=== PATIENT | female | born 1940 | race Caucasian/White ===

== ENCOUNTER 2016-07-12 12:19 | Inpatient (IN) | payer MEDICARE, OTHER ==
--- NOTE | 2016-07-12 12:56 | ER Document Report ---
ED Fall - General Mode of Arrival: Medic Information source: Patient TRAVEL OUTSIDE OF THE [place] IN LAST 30 DAYS: No - HPI Occurred: Other - x3 days Where: Home <MYRAYESSICA - Last Filed: 07/12/16 13:57> <SHANNONVINCENT - Last Filed: 07/12/16 14:41> - General Chief Complaint: Fall Stated Complaint: LOWER EXTREMITY WEAKNESS Notes: Patient is a 76-year-old female that presents to the emergency department today secondary to complaints of frequent falls. Patient states she has not been using her walker during these falls. Patient states she falls intermittently every once in a while but over the last 3 days she has been falling quite a lot. Patient states when she falls she cannot get up. Patient states she feels like she has her normal strength so she is unsure what is causing her to fall. Patient lives with her at home. (YESSICA RENTERIA) - Related data Allergies/Adverse Reactions: Sulfa (Sulfonamide Antibiotics) Allergy (Severe, Verified 05/17/14 22:11) Dysrhythmia Past Medical History - General Information source: Patient - Social History Smoking Status: Never Smoker Cigarette use (# per day): No Frequency of alcohol use: None Drug Abuse: None Lives with: Family Family History: Reviewed & Not Pertinent - Past Medical History Cardiac Medical History: Reports: Hx Hypertension - meds x 10 years GI Medical History: Reports: Hx Gastroesophageal Reflux Disease - meds x 2 years Musculoskeltal Medical History: Reports Hx Arthritis Psychiatric Medical History: Reports: Hx Depression - meds x 2 years Traumatic Medical History: Reports: Hx Fractures - 05/17/14, RT elbow & femur Past Surgical History: Reports: Hx Orthopedic Surgery, Hx Tonsillectomy - at age 64 years old - Immunizations Immunizations up to date: Yes Hx Diphtheria, Pertussis, Tetanus Vaccination: Yes <YESSICA RENTERIA - Last Filed: 07/12/16 13:57> Review of Systems - Review of Systems Constitutional: See HPI, Other - frequent falls EENT: No symptoms reported Cardiovascular: No symptoms reported Respiratory: No symptoms reported Gastrointestinal: No symptoms reported Genitourinary: No symptoms reported Female Genitourinary: No symptoms reported Musculoskeletal: No symptoms reported Skin: No symptoms reported Hematologic/Lymphatic: No symptoms reported Neurological/Psychological: No symptoms reported -: Yes All other systems reviewed and negative <YESSICA RENTERIA - Last Filed: 07/12/16 13:57> Physical Exam - General General appearance: Appears well, Alert In distress: None - HEENT Head: Normocephalic, Atraumatic Eyes: Normal Conjunctiva: Normal Extraocular movements intact: Yes - Respiratory Respiratory status: No respiratory distress Chest status: Nontender Breath sounds: Normal - Cardiovascular Rhythm: Regular Heart sounds: Normal auscultation Murmur: Yes - grade 1 systolic murmur, can be heard in the neck when breathing - Abdominal Distension: Distended Bowel sounds: Normal Tenderness: Nontender - Extremities General upper extremity: Normal inspection, Normal ROM. No: Edema General lower extremity: Normal inspection, Normal ROM, Normal strength - 5/5 strength in bilateral lower extremities. No: Edema - Neurological Neuro grossly intact: Yes Cognition: Normal Orientation: AAOx4 Speech: Normal - Psychological Associated symptoms: Normal affect, Normal mood - Skin Skin Temperature: Warm Skin Moisture: Dry Skin Color: Normal <MYRAYESSICA - Last Filed: 07/12/16 13:57> Course - Laboratory Result Diagrams: 07/12/16 13:28 07/12/16 13:28 <YESSICA RENTERIA - Last Filed: 07/12/16 13:57> - Laboratory Result Diagrams: 07/12/16 13:28 07/12/16 13:28 - Diagnostic Test Radiology reviewed: Image reviewed, Reports reviewed - Left lower lobe infiltrate - EKG Interpretation by Nd EKG shows normal: Sinus rhythm, [place], QRS Complexes, ST-T Waves. abnormal: Intervals Rate: Normal - 86 Rhythm: NSR [place]/QRS: IVCD Voltage: Consistant with LVH When compared to previous EKG there are: No significant change - Consults Dr. Brown Time consulted: 14:40 Consulted provider: will come to ER <VINCENT ORTEGA - Last Filed: 07/12/16 14:41> - Vital Signs Vital signs: Temp Pulse Resp BP Pulse Ox 101.4 F H 86 21 H 145/60 H 94 07/12/16 12:26 07/12/16 12:26 07/12/16 12:26 07/12/16 12:26 07/12/16 12:26 - Laboratory Laboratory results interpreted by me: 07/12/16 07/12/16 13:28 13:28 Hgb 11.8 L Hct 35.1 L RDW 15.4 H Seg Neutrophils % 80.1 H Lymphocytes % 9.0 L Est GFR (Non-Af Amer) 52 L Creatine Kinase 239 H Discharge <YESSICA RENTERIA - Last Filed: 07/12/16 13:57> - Discharge Admitting Provider: Hospitalist Unit Admitted: Telemetry <VINCENT ORTEGA - Last Filed: 07/12/16 14:41> - Discharge Clinical Impression: Weakness Pneumonia Qualifiers: Pneumonia type: due to unspecified organism Laterality: left Lung location: lower lobe of lung Qualified Code(s): J18.1 - Lobar pneumonia, unspecified organism Fever Qualifiers: Fever type: unspecified Qualified Code(s): R50.9 - Fever, unspecified Condition: Stable Disposition: ADMITTED INPATIENT Scribe Attestation: 07/12/16 14:40 I personally performed the services described in the documentation, reviewed and edited the documentation which was dictated to the scribe in my presence, and it accurately records my words and actions. (VINCENT ORTEGA) Scribe Documentation - Scribe Written by Jill:: Jill Johnosn, 07/12/2016 1257 acting as scribe for :: Shannon <YESSICA RENTERIA - Last Filed: 07/12/16 13:57>
--- NOTE | 2016-07-12 13:48 | EKG REPORT ---
SEVERITY:- ABNORMAL ECG - SINUS RHYTHM NONSPECIFIC INTRAVENTRICULAR CONDUCTION DELAY PROBABLE LVH WITH SECONDARY REPOL ABNRM : Confirmed by: Martinez Rodriguez MD 12-Jul-2016 13:47:25
[2016-07-12] MEDS ORDERED: ACETAMINOPHEN 325 MG TABLET PO ONE (13:53)
[2016-07-12 13:58] LABS: APPEARANCE,URINE SLIGHTLY-CLOUDY; BILIRUBIN,URINE NEGATIVE (NEGATIVE); GLUCOSE, URINE NEGATIVE (NEGATIVE); KETONES,URINE NEGATIVE (NEGATIVE); LEUKOCYTE ESTERASE,URINE NEGATIVE (NEGATIVE); NITRITE,URINE NEGATIVE (NEGATIVE); PROTEIN,URINE NEGATIVE (NEGATIVE); URINE SPECIFIC GRAVITY 1.014; UROBILINOGEN,URINE NEGATIVE mg/dL (<2.0)
[2016-07-12 14:05] LABS: ALANINE AMINOTRANSFERASE 26 U/L (9-52); ALKALINE PHOSPHATASE 70 U/L (38-126); ANION GAP 9 (5-19); ASPARTATE AMINO TRANSFERASE 21 U/L (14-36); BILIRUBIN,DIRECT 0.1 mg/dL (0.0-0.4); BILIRUBIN,TOTAL 0.7 mg/dL (0.2-1.3); BLOOD UREA NITROGEN 16 mg/dL (7-20); CALCIUM 10.1 mg/dL (8.4-10.2); CARBON DIOXIDE 30 mmol/L (22-30); CHLORIDE 100 mmol/L (98-107); CREATINE KINASE 239 U/L (30-135); CREATININE RESULT 1.02 mg/dL (0.52-1.25); GLUCOSE 110 mg/dL (75-110); POTASSIUM 4.1 mmol/L (3.6-5.0); SODIUM 139.1 mmol/L (137-145); TOTAL PROTEIN 6.7 g/dL (6.3-8.2)
[2016-07-12 14:07] LABS: ABSOLUTE LYMPHOCYTES (AUTO) 0.6 10^3/uL (0.5-4.7); ABSOLUTE MONOCYTES (AUTO) 0.7 10^3/uL (0.1-1.4); ABSOLUTE NEUT (AUTO) 5.6 10^3/uL (1.7-8.2); BASOPHILS % (AUTO) 0.2 % (0-2); EOSINOPHILS % (AUTO) 0.3 % (0-6); HEMATOCRIT 35.1 % (36.0-47.0); HEMOGLOBIN 11.8 g/dL (12.0-15.5); HGB HCT DIFFERENCE 0.3; MEAN CORPUSCULAR HEMOGLOBIN 28.8 pg (27.0-33.4); MEAN CORPUSCULAR HGB CONC 33.5 g/dL (32.0-36.0); MEAN CORPUSCULAR VOLUME 86 fl (80-97); MONOCYTES % (AUTO) 10.4 % (3-13); RED BLOOD COUNT 4.09 10^6/uL (3.72-5.28); RED CELL DISTRIBUTION WIDTH 15.4 % (11.5-14.0); SEGMENTED NEUTROPHILS % (AUTO) 80.1 % (42-78)
[2016-07-12 14:17] LABS: CREATINE KINASE MB 0.36 ng/mL (<4.55)
[2016-07-12 14:20] LABS: TROPONIN I 0.046 ng/mL
[2016-07-12] MEDS ORDERED: CEFTRIAXONE 1 GM/D5W RTU 50 ML IV ONE (14:27)
[2016-07-12] MEDS ORDERED: AZITHROMYCIN 250 MG TABLET PO ONE (14:28)
[2016-07-12] MEDS ORDERED: LEVALBUTEROL HCL NEB 1.25 MG/3 ML AMPUL NEB PRN (16:23)
[2016-07-12] MEDS ORDERED: ACETAMINOPHEN 325 MG TABLET PO PRN (16:23)
--- NOTE | 2016-07-12 16:49 | PDOC H&P ---
History of Present Illness Admission Date/PCP: 07/12/16 15:54 Patient complains of: Frequent fall and generalized weakness History of Present Illness: KARISHMA ASIF is a 76 year old female, with history of osteoarthritis as well as osteoporosis has been having generalized weakness for the past 4 days of the patient reports she is in the falls because her legs cannot hold on. No dizziness or lightheadedness noted. Patient reports that she fell on her back a few days ago having some discomfort on the right rib cage. He was having cough with whitish phlegm and associated sweating. There is likewise sore throat noted and some sinus congestion intermittently. No shortness of breath at all nor any chest pain other than the discomfort she had after the fall. Because of progressive weakness patient is unable to walk and therefore went to the emergency room for evaluation. There is no definite fever. In the emergency room patient has a fever of 101.4F. Chest x-ray revealed a left lower lobe infiltrate. WBC however is normal. Patient was then referred for admission. Patient started on intravenous antibiotics. Her was recently diagnosed with bronchitis by his primary care physician before the patient got sick. Past Medical History Past Medical History: Medication reconciliation pending verification from the patient's pharmacist. Cardiac Medical History: Reports: Hypertension - meds x 10 years Pulmonary Medical History: Reports: Other - Seasonal allergies GI Medical History: Reports: Gastroesophageal Reflux Disease - meds x 2 years Musculoskeltal Medical History: Reports: Arthritis Psychiatric Medical History: Reports: Depression - meds x 2 years Past Surgical History Past Surgical History: Reports: Orthopedic Surgery - Hip arthroplasty, open reduction internal fixation of the hip, Tonsillectomy - at age 64 years old Denies: Amputation Social History Information Source: Patient Lives with: Family Smoking Status: Never Smoker Frequency of Alcohol Use: Social Hx Recreational Drug Use: No Drugs: None Hx Prescription Drug Abuse: No Family History Family History: DM Parental Family History Reviewed: Yes Children Family History Reviewed: Yes Sibling(s) Family History Reviewed.: Yes Medication/Allergy Home Medications: Alendronate Sodium [Fosamax] 70 mg PO GRIMES 05/18/14 Aspirin [Aspirin 325 mg Tablet] 325 mg PO DAILY 05/18/14 Calcium Carbonate [Calcium] 600 mg PO BID 05/18/14 Cholecalciferol (Vitamin D3) [Vitamin D3] 50,000 unit PO [id number] 05/18/14 Citalopram Hydrobromide [Celexa 10 mg Tablet] 10 mg PO QPM 05/18/14 Esomeprazole Magnesium [Nexium] 40 mg PO QAM 05/18/14 Felodipine [Plendil] 2.5 tab PO QAM 05/18/14 Fluticasone Propionate [Flonase Nasal Atkins 50 Mcg/Atkins 16 gm] 2 puff NASL BID 05/18/14 Labetalol HCl [Trandate] 400 mg PO BID 05/18/14 Multivitamin [Multi-Vitamin Daily] 1 each PO DAILY 05/18/14 Telmisartan [Micardis 80 mg Tablet] 80 mg PO QAM 05/18/14 Oxycodone HCl/Acetaminophen [Percocet 5-325 mg Tablet] 1 - 2 tab PO Q6H PRN 04/07 Oxycodone HCl [Oxy-Ir 5 mg Tablet] 5 mg PO Q6HP PRN #0 tablet 05/12/15 Rivaroxaban [Xarelto 10 mg Tablet] 10 mg PO QHS #0 tablet 05/12/15 Allergies/Adverse Reactions: Sulfa (Sulfonamide Antibiotics) Allergy (Severe, Verified 05/17/14 22:11) Dysrhythmia Review of Systems Constitutional: PRESENT: chills - Occasional, weakness - Generalized, other - Positive diaphoresis. ABSENT: fever(s), headache(s), weight gain, weight loss Eyes: ABSENT: visual disturbances Ears: ABSENT: hearing changes Nose, Mouth, and Throat: PRESENT: sore throat - Occasional. ABSENT: headache(s) , mouth pain, vertigo Cardiovascular: PRESENT: dyspnea on exertion. ABSENT: chest pain, edema, orthropnea, palpitations Respiratory: PRESENT: cough, sputum. ABSENT: hemoptysis Gastrointestinal: ABSENT: abdominal pain, constipation, diarrhea, hematemesis, hematochezia, melena, nausea, vomiting Genitourinary: ABSENT: dysuria, hematuria Musculoskeletal: ABSENT: joint swelling Integumentary: ABSENT: pruritus, rash, wounds Neurological: ABSENT: abnormal gait, abnormal speech, confusion, dizziness, focal weakness, syncope, tremor(s), vertigo Psychiatric: ABSENT: anxiety, depression, homidical ideation, suicidal ideation Endocrine: ABSENT: cold intolerance, heat intolerance, polydipsia, polyphagia, polyuria Hematologic/Lymphatic: ABSENT: easy bleeding, easy bruising Physical Exam Vital Signs: Temp Pulse Resp BP Pulse Ox 99.2 F 81 23 H 140/55 H 92 07/12/16 16:28 07/12/16 16:28 07/12/16 16:28 07/12/16 16:28 07/12/16 16:28 General appearance: PRESENT: no acute distress, cooperative, obese Head exam: PRESENT: atraumatic, normocephalic Eye exam: PRESENT: conjunctiva pink, EOMI, PERRLA - Sluggish, arcus senilis. ABSENT: scleral icterus Ear exam: PRESENT: normal external ear exam. ABSENT: drainage Mouth exam: PRESENT: dry mucosa, neck supple, tongue midline Throat exam: ABSENT: post pharyngeal erythema, tonsillar erythema Neck exam: ABSENT: carotid bruit, JVD, lymphadenopathy, thyromegaly Respiratory exam: PRESENT: clear to auscultation felipe - Anteriorly, rales - Posteriorly on the left lower lung field. ABSENT: rhonchi, wheezes Cardiovascular exam: PRESENT: RRR, +S1, +S2, systolic murmur - Left sternal border radiating to the carotids. ABSENT: diastolic murmur, gallop, rubs Pulses: PRESENT: normal dorsalis pedis pul Vascular exam: PRESENT: normal capillary refill GI/Abdominal exam: PRESENT: normal bowel sounds, soft. ABSENT: distended, guarding, mass, organolmegaly, rebound, tenderness Rectal exam: PRESENT: deferred Extremities exam: PRESENT: full ROM. ABSENT: calf tenderness, clubbing, pedal edema Neurological exam: PRESENT: alert, awake, oriented to person, oriented to place , oriented to time, oriented to situation Psychiatric exam: PRESENT: appropriate affect, normal mood. ABSENT: homicidal ideation, suicidal ideation Skin exam: PRESENT: dry, intact, warm, other - Very minimal bruising noted posteriorly on the left rib cage. ABSENT: cyanosis, rash Results Impressions: Chest X-Ray 07/12/16 12:51 IMPRESSION: Left lower lobe pneumonia. Assessment & Plan - Diagnosis (1) Pneumonia Qualifiers: Pneumonia type: due to unspecified organism Laterality: left Lung location: lower lobe of lung Qualified Code(s): J18.1 - Lobar pneumonia, unspecified organism Is this a current diagnosis for this admission?: Yes (2) Dehydration Is this a current diagnosis for this admission?: Yes (3) Hypertension Qualifiers: Hypertension type: essential hypertension Qualified Code(s): I10 - Essential (primary) hypertension Is this a current diagnosis for this admission?: Yes (4) GERD (gastroesophageal reflux disease) Qualifiers: Esophagitis presence: without esophagitis Qualified Code(s): K21.9 - Gastro-esophageal reflux disease without esophagitis Is this a current diagnosis for this admission?: Yes (5) Depression Qualifiers: Depression Type: unspecified Qualified Code(s): F32.9 - Major depressive disorder, single episode, unspecified Is this a current diagnosis for this admission?: Yes (6) Osteoarthritis Qualifiers: Osteoarthritis location: unspecified site Is this a current diagnosis for this admission?: Yes (7) Seasonal allergies Qualifiers: Allergic rhinitis trigger: unspecified Qualified Code(s): J30.2 - Other seasonal allergic rhinitis Is this a current diagnosis for this admission?: Yes - Time Time Spent: 50 to 70 Minutes - Inpatient Certification Based on my medical assessment, after consideration of the patient's comorbidities, presenting symptoms, or acuity I expect that the services needed warrant INPATIENT care.: Yes I certify that my determination is in accordance with my understanding of Medicare's requirements for reasonable and necessary INPATIENT services [42 CFR 412.3e].: Yes Medical Necessity: Need Close Monitoring Due to Risk of Patient Decompensation, Need For IV Fluids, Need for IV Antibiotics, Risk of Complication if Not Cared For in Hospital Post Hospital Care: D/C High Risk Ob Documentation - Plan Summary Plan Summary: The patient will be admitted to the medical floor. I will gently hydrate the patient with normal saline. We will give supplemental oxygen. Antibiotics will be started intravenously to cover for community-acquired organisms as per pneumonia pathway. She will be on DVT prophylaxis with Lovenox. We will monitor electrolytes. Further testing depends on initial evaluation and response to treatment as outlined above.
[2016-07-12] MEDS ORDERED: (PENDING PHARMACY ID) (Calcium Carbonate [Calcium] 600 MG) PO SCH (18:00)
[2016-07-12] MEDS ORDERED: (PENDING PHARMACY ID) (Citalopram Hydrobromide [Celexa 10 Mg Tablet] 10 MG) PO SCH (18:00)
[2016-07-12] MEDS: LABETALOL HCL 200 MG TABLET PO SCH (21:29)
[2016-07-12] MEDS: GUAIFENESIN 600 MG TABLET.SA PO SCH (21:29)
[2016-07-12] MEDS: CITALOPRAM HYDROBROMIDE 20 MG TABLET PO SCH (21:29)
[2016-07-13 05:14] LABS: ANION GAP 13 (5-19); BLOOD UREA NITROGEN 19 mg/dL (7-20); CALCIUM 9.2 mg/dL (8.4-10.2); CARBON DIOXIDE 26 mmol/L (22-30); CHLORIDE 105 mmol/L (98-107); CREATININE RESULT 0.95 mg/dL (0.52-1.25); GLUCOSE 105 mg/dL (75-110); POTASSIUM 3.5 mmol/L (3.6-5.0); SODIUM 143.7 mmol/L (137-145)
[2016-07-13] MEDS: LANSOPRAZOLE 30 MG TAB.RAP.DR PO SCH (05:31)
[2016-07-13] MEDS: NORMAL SALINE 1000 ML 1,000 ML IV PRN (05:32)
[2016-07-13] MEDS ORDERED: (PENDING PHARMACY ID) (Telmisartan [Micardis 80 Mg Tablet] 80 MG) PO SCH (08:00)
[2016-07-13] MEDS: LOSARTAN POTASSIUM 50 MG TABLET PO SCH (08:00)
[2016-07-13] MEDS: ENOXAPARIN SODIUM INJ 40 MG/0.4 ML DISP.SYRIN SUBCUT SCH (08:00)
--- NOTE | 2016-07-13 09:50 | PDOC PROGRESS REPORT ---
Subjective Progress Note for:: 07/13/16 Subjective:: Patient is feeling better in terms of strength. Still have some soreness in the rib cage. Denies chills or fever or diarrhea. Intermittent coughing but denies any increasing shortness of breath. No nausea or vomiting. No dizziness. Physical Exam Vital Signs: Temp Pulse Resp BP Pulse Ox 99.1 F 71 16 132/60 H 94 07/13/16 07:37 07/13/16 07:37 07/13/16 07:37 07/13/16 07:37 07/13/16 08:00 Pulse Oximeter Continuous Start: 07/12/16 16: 23 Freq: RTQ4 Status: Active Document 07/13/16 08:00 JDR (Rec: 07/13/16 08:25 [id number] [id number]) Pulse Oximetry Assessment Oxygen Saturation (92-100) 94 Oxygen Flow Rate (L/min) 2 Oxygen Delivery Method Nasal Cannula Equipment Usage Equipment in Use Continuous SpO2 Machine # 13 Intake & Output 07/12/16 07/13/16 07/14/16 06:59 06:59 06:59 Intake Total 150 Balance 150 General appearance: PRESENT: no acute distress, cooperative Head exam: PRESENT: normocephalic Eye exam: PRESENT: EOMI Mouth exam: PRESENT: moist, neck supple Neck exam: ABSENT: JVD Respiratory exam: PRESENT: clear to auscultation felipe - Anteriorly, rales - Posteriorly in the left base Cardiovascular exam: PRESENT: RRR. ABSENT: gallop GI/Abdominal exam: PRESENT: soft. ABSENT: distended, tenderness Extremities exam: ABSENT: pedal edema Neurological exam: PRESENT: alert, awake, oriented to situation Skin exam: PRESENT: dry, warm. ABSENT: cyanosis Results Laboratory Results: 07/13/16 04:46 07/13/16 04:46 Sodium 143.7 Potassium 3.5 L Chloride 105 Carbon Dioxide 26 Anion Gap 13 BUN 19 Creatinine 0.95 Est GFR ( Amer) > 60 Est GFR (Non-Af Amer) 57 L Glucose 105 Calcium 9.2 Impressions: Chest X-Ray 07/12/16 12:51 IMPRESSION: Left lower lobe pneumonia. Assessment & Plan - Diagnosis (1) Pneumonia Qualifiers: Pneumonia type: due to unspecified organism Laterality: left Lung location: lower lobe of lung Qualified Code(s): J18.1 - Lobar pneumonia, unspecified organism Is this a current diagnosis for this admission?: Yes (2) Dehydration Is this a current diagnosis for this admission?: Yes (3) Hypertension Qualifiers: Hypertension type: essential hypertension Qualified Code(s): I10 - Essential (primary) hypertension Is this a current diagnosis for this admission?: Yes (4) GERD (gastroesophageal reflux disease) Qualifiers: Esophagitis presence: without esophagitis Qualified Code(s): K21.9 - Gastro-esophageal reflux disease without esophagitis Is this a current diagnosis for this admission?: Yes (5) Depression Qualifiers: Depression Type: unspecified Qualified Code(s): F32.9 - Major depressive disorder, single episode, unspecified Is this a current diagnosis for this admission?: Yes (6) Osteoarthritis Qualifiers: Osteoarthritis location: unspecified site Is this a current diagnosis for this admission?: Yes (7) Seasonal allergies Qualifiers: Allergic rhinitis trigger: unspecified Qualified Code(s): J30.2 - Other seasonal allergic rhinitis Is this a current diagnosis for this admission?: Yes - Time Time Spent with patient: 25-34 minutes - Plan Summary Plan Summary: We are going to continue IV hydration. Begin physical therapy. Continue current antibiotics for now. Replace potassium and monitor electrolytes. Obtain an x-ray of the ribs.
[2016-07-13] MEDS: LABETALOL HCL 200 MG TABLET PO SCH ×2 (10:02→21:42)
[2016-07-13] MEDS: ASPIRIN 325 MG TABLET PO SCH (10:02)
[2016-07-13] MEDS: GUAIFENESIN 600 MG TABLET.SA PO SCH ×2 (10:02→21:42)
[2016-07-13] MEDS: CALCIUM CARBONATE 500 MG TABLET PO SCH ×2 (10:02→18:28)
[2016-07-13] MEDS: CEFTRIAXONE 1 GM/D5W RTU 50 ML IV SCH (10:04)
[2016-07-13] MEDS: AZITHROMYCIN 500 MG in DEXTROSE 5%-WATER 250 ML IV SCH (10:04)
[2016-07-13] MEDS: POTASSIUM CHLORIDE 10 MEQ TABLET.SA PO SCH ×2 (12:17→15:06)
[2016-07-13] MEDS: CITALOPRAM HYDROBROMIDE 20 MG TABLET PO SCH (21:42)
[2016-07-14 05:37] LABS: ANION GAP 9 (5-19); BLOOD UREA NITROGEN 21 mg/dL (7-20); CALCIUM 9.3 mg/dL (8.4-10.2); CARBON DIOXIDE 28 mmol/L (22-30); CHLORIDE 109 mmol/L (98-107); CREATININE RESULT 0.77 mg/dL (0.52-1.25); GLUCOSE 102 mg/dL (75-110); POTASSIUM 4.3 mmol/L (3.6-5.0); SODIUM 145.6 mmol/L (137-145)
[2016-07-14] MEDS: NORMAL SALINE 1000 ML 1,000 ML IV PRN (05:59)
[2016-07-14] MEDS: LANSOPRAZOLE 30 MG TAB.RAP.DR PO SCH (05:59)
[2016-07-14] MEDS: ENOXAPARIN SODIUM INJ 40 MG/0.4 ML DISP.SYRIN SUBCUT SCH (07:48)
[2016-07-14] MEDS: LOSARTAN POTASSIUM 50 MG TABLET PO SCH (07:48)
--- NOTE | 2016-07-14 08:49 | PDOC PROGRESS REPORT ---
Subjective Progress Note for:: 07/14/16 Subjective:: Patient is feeling better in terms of strength. Soreness in the rib cage unchanged. Denies chills or fever or diarrhea. Intermittent coughing but denies any increasing shortness of breath. No nausea or vomiting. No dizziness. Physical Exam Vital Signs: Temp Pulse Resp BP Pulse Ox 97.9 F 70 18 164/70 H 97 07/14/16 04:15 07/14/16 04:15 07/14/16 04:15 07/14/16 04:15 07/14/16 04:15 Pulse Oximeter Continuous Start: 07/12/16 16: 23 Freq: RTQ4 Status: Active Document 07/14/16 04:00 LRO (Rec: 07/14/16 05:05 LRO [email or web address]) Pulse Oximetry Assessment Oxygen Saturation (92-100) 97 Oxygen Flow Rate (L/min) 2 Oxygen Delivery Method Nasal Cannula Fraction of Inspired Oxygen (FIO2) 28 Equipment Usage Equipment in Use Continuous SpO2 Machine # 13 Intake & Output 07/13/16 07/14/16 07/15/16 06:59 06:59 06:59 Intake Total 150 3017 Output Total 400 Balance 150 2617 Weight 81.2 kg General appearance: PRESENT: no acute distress, cooperative Head exam: PRESENT: normocephalic Eye exam: PRESENT: EOMI Mouth exam: PRESENT: moist, neck supple Respiratory exam: PRESENT: clear to auscultation felipe - anteriorly. ABSENT: rhonchi, wheezes Cardiovascular exam: PRESENT: RRR. ABSENT: gallop GI/Abdominal exam: PRESENT: soft. ABSENT: distended, tenderness Extremities exam: ABSENT: pedal edema Neurological exam: PRESENT: alert, awake, oriented to situation Skin exam: PRESENT: dry, warm. ABSENT: cyanosis Results Laboratory Results: 07/14/16 04:20 07/14/16 04:20 Sodium 145.6 H Potassium 4.3 Chloride 109 H Carbon Dioxide 28 Anion Gap 9 BUN 21 H Creatinine 0.77 Est GFR ( Amer) > 60 Est GFR (Non-Af Amer) > 60 Glucose 102 Calcium 9.3 Impressions: Chest X-Ray 07/12/16 12:51 IMPRESSION: Left lower lobe pneumonia. Ribs w/Chest X-Ray 07/13/16 09:51 IMPRESSION: 1. Acute minimally displaced fracture involving the lateral right 10th rib. 2. Old healed fractures involving the right 5th and 8th ribs. 3. Large hiatal hernia IO with minimal adjacent atelectasis or pneumonia in the left base. Assessment & Plan - Diagnosis (1) Pneumonia Qualifiers: Pneumonia type: due to unspecified organism Laterality: left Lung location: lower lobe of lung Qualified Code(s): J18.1 - Lobar pneumonia, unspecified organism Is this a current diagnosis for this admission?: Yes (2) Rib fracture Qualifiers: Encounter type: initial encounter Rib fracture type: single rib Fracture type: closed Laterality: right Qualified Code(s): S22.31XA - Fracture of one rib, right side, initial encounter for closed fracture Is this a current diagnosis for this admission?: Yes (3) Dehydration Is this a current diagnosis for this admission?: Yes (4) Hypertension Qualifiers: Hypertension type: essential hypertension Qualified Code(s): I10 - Essential (primary) hypertension Is this a current diagnosis for this admission?: Yes (5) GERD (gastroesophageal reflux disease) Qualifiers: Esophagitis presence: without esophagitis Qualified Code(s): K21.9 - Gastro-esophageal reflux disease without esophagitis Is this a current diagnosis for this admission?: Yes (6) Depression Qualifiers: Depression Type: unspecified Qualified Code(s): F32.9 - Major depressive disorder, single episode, unspecified Is this a current diagnosis for this admission?: Yes (7) Osteoarthritis Qualifiers: Osteoarthritis location: unspecified site Is this a current diagnosis for this admission?: Yes (8) Seasonal allergies Qualifiers: Allergic rhinitis trigger: unspecified Qualified Code(s): J30.2 - Other seasonal allergic rhinitis Is this a current diagnosis for this admission?: Yes - Time Time Spent with patient: 25-34 minutes - Plan Summary Plan Summary: Check CXR. Wean oxygen to off. Continue antibiotics. Follow cultures. Antitussives.
[2016-07-14] MEDS: CEFTRIAXONE 1 GM/D5W RTU 50 ML IV SCH (09:47)
[2016-07-14] MEDS: ASPIRIN 325 MG TABLET PO SCH (09:51)
[2016-07-14] MEDS: BENZONATATE 100 MG CAPSULE PO SCH ×2 (09:51→17:27)
[2016-07-14] MEDS: GUAIFENESIN 600 MG TABLET.SA PO SCH ×2 (09:52→21:33)
[2016-07-14] MEDS: CALCIUM CARBONATE 500 MG TABLET PO SCH ×2 (09:52→17:27)
[2016-07-14] MEDS: LABETALOL HCL 200 MG TABLET PO SCH ×2 (09:53→21:35)
[2016-07-14] MEDS: AZITHROMYCIN 500 MG in DEXTROSE 5%-WATER 250 ML IV SCH (09:54)
[2016-07-14] MEDS ORDERED: LABETALOL HCL 200 MG TABLET PO SCH (10:00)
[2016-07-14] MEDS: CITALOPRAM HYDROBROMIDE 20 MG TABLET PO SCH (21:33)
[2016-07-15] MEDS: BENZONATATE 100 MG CAPSULE PO SCH ×2 (02:24→10:02)
[2016-07-15] MEDS: LANSOPRAZOLE 30 MG TAB.RAP.DR PO SCH (05:38)
[2016-07-15] MEDS: LOSARTAN POTASSIUM 50 MG TABLET PO SCH (05:51)
[2016-07-15] MEDS ORDERED: AMLODIPINE BESYLATE 5 MG TABLET PO SCH (08:00)
[2016-07-15] MEDS ORDERED: FELODIPINE 2.5 MG PO SCH (08:00)
[2016-07-15] MEDS: ENOXAPARIN SODIUM INJ 40 MG/0.4 ML DISP.SYRIN SUBCUT SCH (08:14)
[2016-07-15] MEDS ORDERED: FUROSEMIDE INJ/PF 40 MG/4 ML SDV IV ONE (08:22)
[2016-07-15] MEDS: ASPIRIN 325 MG TABLET PO SCH (10:02)
[2016-07-15] MEDS: CALCIUM CARBONATE 500 MG TABLET PO SCH (10:03)
[2016-07-15] MEDS: LABETALOL HCL 200 MG TABLET PO SCH (10:03)
[2016-07-15] MEDS: GUAIFENESIN 600 MG TABLET.SA PO SCH (10:03)
[2016-07-15] MEDS: CEFTRIAXONE 1 GM/D5W RTU 50 ML IV SCH (10:03)
[2016-07-15] MEDS: AZITHROMYCIN 500 MG in DEXTROSE 5%-WATER 250 ML IV SCH (11:14)
--- NOTE | 2016-07-15 12:29 | PDOC DISCHARGE SUMMARY ---
General - Admit/Disc Date/PCP Admission Date/Primary Care Provider: 07/12/16 16:23 Discharge Date: 07/15/16 - Discharge Diagnosis (1) Pneumonia Is this a current diagnosis for this admission?: Yes (2) Rib fracture Is this a current diagnosis for this admission?: Yes (3) Dehydration Is this a current diagnosis for this admission?: Yes (4) Hypertension Is this a current diagnosis for this admission?: Yes (5) GERD (gastroesophageal reflux disease) Is this a current diagnosis for this admission?: Yes (6) Depression Is this a current diagnosis for this admission?: Yes (7) Osteoarthritis Is this a current diagnosis for this admission?: Yes (8) Seasonal allergies Is this a current diagnosis for this admission?: Yes - Additional Information Resuscitation Status: Full Code Discharge Diet: Cardiac - low-fat low-salt Discharge Activity: Activity As Tolerated, Balance Activity w/Rest Home Medications: Alendronate Sodium [Fosamax "Weekly" 35 mg Tablet] 70 mg PO GRIMES@1000 07/12/16 Aspirin [Aspirin 325 mg Tablet] 325 mg PO DAILY 07/12/16 Calcium Carbonate [Calcium] 600 mg PO BID 07/12/16 Cholecalciferol (Vitamin D3) [Vitamin D3] 50,000 unit PO [id number] 07/12/16 Citalopram Hydrobromide [Celexa 10 mg Tablet] 10 mg PO QPM 07/12/16 Felodipine [Plendil] 2.5 mg PO QAM 07/12/16 Fluticasone Propionate [Flonase Nasal [place] 50 Mcg/[place] 16 gm] 2 sprays NASL DAILY 07/12/16 Labetalol HCl [Trandate] 400 mg PO Q12 07/12/16 Multivitamin [Daily Multiple Vitamin] 1 tab PO DAILY 07/12/16 Telmisartan [Micardis 80 mg Tablet] 80 mg PO QAM 07/12/16 Benzonatate [Tessalon Perles 100 mg Capsule] 200 mg PO Q8A PRN #30 capsule 07/15 Levofloxacin [Levaquin 750 mg Tablet] 750 mg PO DAILY #7 tab 07/15/16 Additional Information: Return to the emergency room if shortness of breath worsens, or chest pain worsens. Leon bandage around the chest wall as needed for comfort. History of Present Illness Patient complains of: Generalized weakness and fall History of Present Illness: KARISHMA ASIF is a 76 year old female, with history of osteoarthritis as well as osteoporosis has been having generalized weakness for the past 4 days of the patient reports she is in the falls because her legs cannot hold on. No dizziness or lightheadedness noted. Patient reports that she fell on her back a few days ago having some discomfort on the right rib cage. He was having cough with whitish phlegm and associated sweating. There is likewise sore throat noted and some sinus congestion intermittently. No shortness of breath at all nor any chest pain other than the discomfort she had after the fall. Because of progressive weakness patient is unable to walk and therefore went to the emergency room for evaluation. There is no definite fever. In the emergency room patient has a fever of 101.4F. Chest x-ray revealed a left lower lobe infiltrate. WBC however is normal. Patient was then referred for admission. Patient started on intravenous antibiotics. Her was recently diagnosed with bronchitis by his primary care physician before the patient got sick. Hospital Course Hospital Course: The patient was admitted to telemetry. The patient was placed on supplemental oxygen. The patient was started on broad-spectrum antibiotic over for community -acquired pneumonia. Patient was given as needed nebulizer, antitussives, mucolytic. Patient was gently hydrated with intravenous fluids. Patient significantly improved after hydration. Course was noted for rib pain under right where an x-ray revealed fractured fifth rib which is minimally displaced. Patient was educated about the fracture and signs and symptoms of worsening condition was explained if it ever happened to go to the emergency room. The patient was observed in the hospital for a few days without any deterioration, a follow-up chest x-ray did not reveal any worsening infiltrate nor any pneumothorax. The rest of the hospital stays unremarkable. Physical Exam Vital Signs: Temp Pulse Resp BP Pulse Ox 97.6 F 71 18 149/66 H 97 07/15/16 11:48 07/15/16 11:48 07/15/16 11:48 07/15/16 11:48 07/15/16 11:48 Pulse Oximeter Continuous Start: 07/12/16 16: 23 Freq: RTQ4 Status: Active Document 07/15/16 00:00 STI (Rec: 07/15/16 00:12 STI [id number]) Pulse Oximetry Assessment Oxygen Saturation (92-100) 95 Oxygen Delivery Method Room Air Fraction of Inspired Oxygen (FIO2) 21 Equipment Usage Equipment in Use Continuous Pulse Oximeter 24 Hour Charge Charge Now Continuous SpO2 Machine # [id number] Intake & Output 07/14/16 07/15/16 07/16/16 06:59 06:59 06:59 Intake Total 3017 958 Output Total 400 100 Balance 4007 858 Weight 81.2 kg 84.9 kg General appearance: PRESENT: no acute distress, cooperative Head exam: PRESENT: normocephalic Eye exam: PRESENT: EOMI, PERRLA Mouth exam: PRESENT: moist, neck supple Neck exam: ABSENT: JVD Respiratory exam: PRESENT: clear to auscultation felipe Cardiovascular exam: PRESENT: RRR. ABSENT: gallop GI/Abdominal exam: PRESENT: normal bowel sounds, soft. ABSENT: distended Extremities exam: ABSENT: pedal edema Neurological exam: PRESENT: alert, awake, oriented to person, oriented to place , oriented to time, oriented to situation Skin exam: PRESENT: dry, warm. ABSENT: cyanosis Results Laboratory Results: 07/14/16 04:20 Impressions: Ribs w/Chest X-Ray 07/13/16 09:51 IMPRESSION: 1. Acute minimally displaced fracture involving the lateral right 10th rib. 2. Old healed fractures involving the right 5th and 8th ribs. 3. Large hiatal hernia IO with minimal adjacent atelectasis or pneumonia in the left base. Chest X-Ray 07/14/16 00:00 IMPRESSION: Persistent small effusion and left basilar airspace disease. Overall improved. Hiatal hernia is again noted. Qualifiers PATEINT BEING DISCHARGED WITH ANY OF THE FOLLOWING DIAGNOSIS?: No Plan Discharge Plan: Follow-up with primary care physician in one week. Time Spent: Less than 30 Minutes
[2016-07-15 13:48] VITALS: BP 130/59
== END 2016-07-15 14:14 | disposition home health service (06) | DRG 194 ==
LOC: ER 12:19 → UNDOADMIN 15:54 → EH 15:54 → 4W 18:40 → 4N 07-15 06:21
DX: J18.1 Lobar pneumonia, unspecified organism (principal); S22.31XA Fracture of one rib, right side, initial encounter for closed fracture; I10 Essential (primary) hypertension; K21.9 Gastro-esophageal reflux disease without esophagitis; E86.0 Dehydration; M19.90 Unspecified osteoarthritis, unspecified site; J30.2 Other seasonal allergic rhinitis; F32.9 Major depressive disorder, single episode, unspecified; W19.XXXA Unspecified fall, initial encounter; Y93.9 Activity, unspecified; Y92.9 Unspecified place or not applicable
CPT/HCPCS: 36415; 51701; 71010; 80048; 80053; 81001; 82550; 82553; 84484; 85025; 87040; 87070; 87077; 87086; 87186; 87205; 93005; 93010; 94762; 99285; G8978-GP; G8979-GP; J0456; J0696; J1650; J1940; J3490; J7030; J7060